=== PATIENT | female | born 2000 | race Hispanic/Latino ===

== ENCOUNTER 2023-01-24 12:26 | Outpatient (CLI) | payer OTHER | END 2023-01-24 12:27 | disposition home or self-care (01) | LOC: BICULT 12:26 | PROVIDERS: ATTEND Nurse Practitioner Women's Health | DX: R10.2 Pelvic and perineal pain (principal); Z97.5 Presence of (intrauterine) contraceptive device | CPT/HCPCS: 76856 ==